=== PATIENT | male | born 1980 | race American Indian/Alaskan Native ===

== ENCOUNTER 2016-11-04 15:39 | Emergency (ER) | payer SELFPAY ==
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
[2016-11-04 16:59] VITALS: BP 0/0
== END 2016-11-04 18:00 ==
LOC: EDBD → ED 15:39
DX: I46.9 Cardiac arrest, cause unspecified (principal); W34.00XA Accidental discharge from unspecified firearms or gun, initial encounter; Y93.9 Activity, unspecified; Y99.9 Unspecified external cause status; Y92.9 Unspecified place or not applicable
CPT/HCPCS: 99285